=== PATIENT | female | born 1950 | race Caucasian/White ===

== ENCOUNTER 2020-07-12 16:00 | Inpatient (IN) | payer MEDICARE, OTHER ==
[~2020-07-12] VITALS: Ht 165.1 cm; Wt 64.6 kg
[~2020-07-12 16:00] MED LIST: ALBU90OI INH; CIPR500 PO; PHENA200 PO; RXPHEN200 PO; SULTRIDS PO; VARE1
[2020-07-12 17:10] LABS: BASOPHILS ABSOLUTE AUTO 0.03 K/mm3 (0.00-0.23); BASOPHILS PERCENT AUTO 0 % (0-2); EOSINOPHILS ABSOLUTE AUTO 0.01 K/mm3 (0.00-0.68); EOSINOPHILS PERCENT AUTO 0 % (0-6); Hematocrit 32.8 % (33.0-51.0); Hemoglobin 11.4 g/dL (11.5-16.0); IMMATURE GRAN ABSOLUTE AUTO 0.04 K/mm3 (0.00-0.10); IMMATURE GRAN PERCENT AUTO 1 % (0-1); LYMPHOCYTES ABSOLUTE AUTO 1.33 K/mm3 (0.84-5.20); LYMPHOCYTES PERCENT AUTO 18 % (21-46); MONOCYTES ABSOLUTE AUTO 0.96 K/mm3 (0.16-1.47); MONOCYTES PERCENT AUTO 13 % (4-13); Mean Corpuscular HGB 41.5 pg (26.0-34.0); Mean Corpuscular HGB Conc 34.8 g/dL (31.5-36.5); Mean Corpuscular Volume 119 fL (80-100); Mean Platelet Volume 11.1 fL (9.1-12.4); NEUTROPHILS ABSOLUTE AUTO 5.18 K/mm3 (1.96-9.15); NEUTROPHILS PERCENT AUTO 69 % (41-73); Platelet Count 102 K/mm3 (150-400); RDW Coefficient Variation 14.7 % (11.7-14.2); RDW Standard Deviation 65.3 fL (35.1-46.3); Red Blood Cell Count 2.75 M/mm3 (3.80-5.20); White Blood Cell Count 7.55 K/mm3 (4.00-11.30)
[2020-07-12 18:25] LABS: Alanine Aminotransfer (ALT/SGP 26 U/L (12-78); Albumin, Blood 2.3 g/dL (3.4-5.0); Albumin/Globulin Ratio 0.5 (0.8-1.8); Alk Phos 92 U/L (50-136); Anion Gap 10 mmol/L (6-16); Aspartate Aminotrans (AST/SGOT 71 U/L (12-37); Bilirubin, Total 11.7 mg/dL (0.1-1.0); Blood Urea Nitrogen 11 mg/dL (8-24); Bun/Creatinine Ratio 17.3 (12.0-20.0); CO2, Blood 35 mmol/L (21-32); Calcium, Blood 8.6 mg/dL (8.5-10.1); Chloride, Blood 91 mmol/L (98-108); Creatinine, Blood 0.64 mg/dL (0.40-1.00); Globulin, Blood 4.9 g/dL (2.2-4.0); Glomerular Filtration Rate >60 (60-); Glucose, Blood 137 mg/dL (70-99); Potassium, Blood 2.2 mmol/L (3.5-5.5); Sodium, Blood 136 mmol/L (136-145); Total Protein, Blood 7.2 g/dL (6.4-8.2)
[2020-07-12 19:56] LABS: International Normalized Ratio 1.55; Prothrombin Time Results 16.2 Sec (9.7-11.5)
[2020-07-12 21:47] LABS: Phosphorus, Blood 2.8 mg/dL (2.5-4.9)
[2020-07-13 00:08] LABS: Source, Urine Clean Catch
[2020-07-13 00:13] LABS: Appearance, Urine Clear (Clear); Bilirubin, Urine 3+ (Neg); Blood, Urine 1+ (Neg); Color, Urine Amber (P-Yellow); Glucose Qualitative, Urine Neg (Neg); Ketones, Urine 1+ (Neg); Leukocyte Esterase, Urine 1+ (Neg); Nitrite, Urine Pos (Neg); Protein, Urine 2+ (Neg); Urobilinogen, Urine 4+ (Normal)
[2020-07-13 00:18] LABS: Red Blood Cells, Urine 0-2 /hpf (0-2)
[2020-07-13 00:19] LABS: Bacteria Mod /hpf; Squamous Epithelial Cells Not Seen /hpf (Few)
[2020-07-13 00:20] LABS: Hematocrit 24.1 % (33.0-51.0); Hemoglobin 8.3 g/dL (11.5-16.0)
[2020-07-13 05:13] LABS: BASOPHILS ABSOLUTE AUTO 0.01 K/mm3 (0.00-0.23); BASOPHILS PERCENT AUTO 0 % (0-2); EOSINOPHILS ABSOLUTE AUTO 0.02 K/mm3 (0.00-0.68); EOSINOPHILS PERCENT AUTO 0 % (0-6); Hematocrit 24.9 % (33.0-51.0); Hemoglobin 8.5 g/dL (11.5-16.0); IMMATURE GRAN ABSOLUTE AUTO 0.01 K/mm3 (0.00-0.10); IMMATURE GRAN PERCENT AUTO 0 % (0-1); LYMPHOCYTES PERCENT AUTO 23 % (21-46); MONOCYTES ABSOLUTE AUTO 0.81 K/mm3 (0.16-1.47); MONOCYTES PERCENT AUTO 17 % (4-13); Mean Corpuscular HGB 42.1 pg (26.0-34.0); Mean Corpuscular HGB Conc 34.1 g/dL (31.5-36.5); Mean Corpuscular Volume 123 fL (80-100); NEUTROPHILS ABSOLUTE AUTO 2.81 K/mm3 (1.96-9.15); NEUTROPHILS PERCENT AUTO 59 % (41-73); Platelet Count 66 K/mm3 (150-400); RDW Coefficient Variation 15.1 % (11.7-14.2); RDW Standard Deviation 67.8 fL (35.1-46.3); Red Blood Cell Count 2.02 M/mm3 (3.80-5.20); White Blood Cell Count 4.76 K/mm3 (4.00-11.30)
[2020-07-13 05:29] LABS: Anion Gap 5 mmol/L (6-16); Blood Urea Nitrogen 10 mg/dL (8-24); Bun/Creatinine Ratio 15.8 (12.0-20.0); CO2, Blood 32 mmol/L (21-32); Calcium, Blood 7.1 mg/dL (8.5-10.1); Chloride, Blood 103 mmol/L (98-108); Creatinine, Blood 0.63 mg/dL (0.40-1.00); Glomerular Filtration Rate >60 (60-); Glucose, Blood 151 mg/dL (70-99); Magnesium, Blood 2.2 mg/dL (1.6-2.4); Potassium, Blood 3.4 mmol/L (3.5-5.5); Sodium, Blood 140 mmol/L (136-145)
--- NOTE | 2020-07-13 06:00 | NUR ---
PT ADMITTED TO ICU-2 FROM ER AT 0140. ADMIT ASSESS & HX COMPLETE. PT CONT ALERT, CO FEELING TIRED. PT STATES HASNT FELT WELL FOR 2 MONTHS, AND HAS LOST APPROX 20# OVER 6 MONTHS. PT ALSO STATES HER ABD HAS FELT "INGRAM" OVER LAST 1.5 WEEKS, BUT W DECREASED APPETITE. BP HAS IMPROVED FROM 60'S TO 80'S AND HAS REC'D APPROX 3500ML OF FLUID THIS SHIFT. NO SIGN OF BLEEDING. NO VOID SINCE ER. CONT ON PROTONIX & SANDOSTATIN. HAS ALSO REC'D KCL REPLACEMENT. CALL LIGHT IN REACH.
--- NOTE | 2020-07-13 08:52 | NUR ---
CARE ASSUMED CARE AND REPORT ASSUMED FROM SHIVAM BHAKTA. PT SITTING UP IN BED. FLAT AFFECT. OVERALL JAUNDICED IN COLOR. DENIES PAIN AT THIS TIME. ABDOMEN IS DISTENDED, BUT SOFT; MILDLY TENDER. LUNG SOUNDS CLEAR THROUGHOUT. SPO2 87-93 ON 4-6L NC. AFEBRILE. SBP LOW IN 80S; MD RESIDENT AWARE. LABS DISCUSSED WITH MD RESIDENT. NSR, HR 70-80S. NS WITH 20 MEQ INFUSING AT 75 ML/HR. PROTONIX AND OCTREOTIDE INFUSING. WILL CONTINUE TO MONITOR.
[2020-07-13 10:21] LABS: Hematocrit 26.6 % (33.0-51.0); Hemoglobin 8.9 g/dL (11.5-16.0)
--- NOTE | 2020-07-13 13:29 | NUR ---
REASSESSMENT PT REMAINS IN ROOM, NO ACUTE DISTRESS. NO SIGNS OF ACTIVE BLEEDING. NO NAUSEA. PT REQUESTED TO GET OUT OF BED SHE IS RESTLESS. SHE WAS ABLE TO STAND AND AMBULATE INTO CHAIR, WHERE SHE IS CURRENTLY SITTING UPRIGHT WATCHING TV. PROTONIX AND OCTREOTIDE REMAINS INFUSING. MIV NS INFUSING AT 150 ML/HR PER ORDER. PT REMAINS NPO BUT IS TOLERATING A FEW ICE CHIPS. WILL CONTINUE TO MONITOR.
--- NOTE | 2020-07-13 17:27 | NUR ---
Initial spiritual care note: Per admit trigger, I was tasked to offer ACP information to Ashley. She is interested in completing and Advanced Directive naming her dtr as MPOA. We went over this document. She will inform RN when dtr arrives, and I will help complete. Until then, I will remain available.
--- NOTE | 2020-07-13 17:55 | NUR ---
SHIFT SUMMARY OCTREOTIDE AND PROTONIX GTT INFUSED ENTIRE SHIFT. PT UP TO BEDSIDE COMMODE AND OUT OF BED WITH JUST STANDBY ASSIST. NO NAUSEA; NO VOMITING. NO SIGNS OF ACTIVE BLEEDING DURING SHIFT. DID SIT UP IN RECLINER CHAIR FOR FEW HOURS TODAY. DAUGHTER BEDSIDE OFF/ON DURING SHIFT AND UPDATED EACH TIME. BP SOFT ENTIRE DAY, 80-90S/40-50S; MD AWARE. PT NOW HAVING CLEAR LIQUIDS; WILL BE NPO AT MIDNIGHT. HAS REMAINED IN NSR, HR 70-80S. WILL GIVE BEDSIDE, HANDOFF REPORT TO NOC RN.
--- NOTE | 2020-07-13 18:36 | NUR ---
Advanced Directive completed, signed, notarized, and copies made. One copy place in chart. The rest home with dtr.
--- NOTE | 2020-07-13 22:35 | NUR ---
ASSUMED CARE: PT A&O. MILDLY FEBRILE IN THE 99.0. IN SR, SBP 80-90S, HR 70-80S. ON 4LNC. SPO2 >90%. PT CURRENTLY DOES NOT COMPLAIN OF N/V/D. NO EVIDENCE OR S/S OF BLEEDING. ABD IS MOD DISTENDED WITH BT X 4. PT IS A STANDBY ASSIST TO COMMODE D/T DIFFICULTY MANAGING IV LINES. 3 PIVS. LAC, LFA, RAC. DR LANZA WAS IN TO SEE PT. PLAN IS TO SCOPE IN THE AFTERNOON. PT WILL BE NPO AFTER MIDNIGHT FOR PROCEDURE.
--- NOTE | 2020-07-14 06:21 | NUR ---
SHIFT SUMMARY: NO ACUTE CHANGES OVERNIGHT. PT SLEPT MAJORITY OF NIGHT. VSS, SBP SOFT AT TIMES DEPENDING ON PT POSITION. SOME URINE OUTPUT. ONE BM. NO S/S OF BLEEDING. WILL PASS REPORT TO ONCOMING SHIFT
--- NOTE | 2020-07-14 07:46 | NUR ---
PT A&OX4. DENIES PAIN OR NAUSEA. NO ACTIVE BLEEDING. PT AFFECT FLAT. PT STATES THAT HER SPOUSE ONE YEAR AGO TODAY IN THIS ICU. ALLOWED PT TO VERBALIZE HER FEELINGS IN THAT REGARD. LUNGS WITH SCATTERED EXP WZ. NO NOTED SOB OR COUGH. PT IS NPO FOR EGD WITH MAC LATER TODAY. PT REPORTED THAT SHE WAS "GETTING TIRED OF THIS BED." ASSISTED PT UP TO RECLINER WITH STANDBY ASSIST WITHOUT DIFFICULTY.
[2020-07-14 08:23] LABS: Hematocrit 27.5 % (33.0-51.0); Hemoglobin 9.2 g/dL (11.5-16.0)
[2020-07-14 08:42] LABS: Anion Gap 2 mmol/L (6-16); Blood Urea Nitrogen 8 mg/dL (8-24); Bun/Creatinine Ratio 13.9 (12.0-20.0); CO2, Blood 30 mmol/L (21-32); Chloride, Blood 111 mmol/L (98-108); Creatinine, Blood 0.58 mg/dL (0.40-1.00); Glomerular Filtration Rate >60 (60-); Glucose, Blood 118 mg/dL (70-99); Sodium, Blood 143 mmol/L (136-145)
--- NOTE | 2020-07-14 10:24 | NUR ---
History, Chart, Medications and Allergies reviewed before start of procedure. Patient confirms NPO status and agrees with scheduled surgery.
--- NOTE | 2020-07-14 10:41 | NUR ---
07/14/20 1041 Luis Kearns Bite Block Placed. 3-LEAD EKG REVIEWED WITH PHYSICIAN PRIOR TO START OF PROCEDURE. CASE DONE IN ICU [address] GOMES. SEE ANNESTHESIA RECORD
--- NOTE | 2020-07-14 10:52 | NUR ---
[id number] EGD DONE. NO VARICES. APC UTILIZED FOR GAVE. ECG DONE WITH MAC-PT TOLERATED WELL. SEE FLOWSHEET FOR FREQUENT VS.
--- NOTE | 2020-07-14 12:00 | NUR ---
CIWA REMAINS 0. NO NAUSEA, VOMITING, OR ACTIVE GIB. PT SIPPING ON ENSURE WITHOUT DIFFICULTY. VS WDL. ULTRASOUND GUIDED PARACENTESIS FOR BOTH DIAGNOSTIC AND THERAPEUTIC PURPOSE IS ORDERED AND THE [employer] HAS BEEN NOTIFIED. PT TO BE STARTED ON PRILOSEC PO-SANDOSTATIN AND PROTONIX DRIPS DISCONTINUED. REPORT PHONED TO YONY HAWK AND PT TRANSFERED TO ROOM 339 VIA WHEELCHAIR.
--- NOTE | 2020-07-14 12:05 | NUR ---
PT ARRIVED TO ROOM 339 FROM ICU 2 VIA W/C. ABLE TO STAND AND TRANSFER TO CHAIR. PT IS A SBA. ORIENTED TO ROOM AND CALL SYSTEM. TRANSPORT ARRIVED WITH A W/C. PT TO RECEIVED AN ULTRASOUND GUIDED PARACENTISIS AT THIS TIME.
[2020-07-14 14:02] LABS: Automated BF RBC Count 0.002 M/mm3 (0-0); Automated BF WBC Count 0.186 K/mm3 (0-999); Body Fluid WBC Count 186 /mm3 (0-999)
[2020-07-14 14:12] LABS: Albumin, Body Fluid 0.5 g/dL
[2020-07-14 14:25] LABS: Protein, Body Fluid 1.1 g/dL
[2020-07-14 14:39] LABS: Total Cell Count, Body Fluid 100
[2020-07-14 14:40] LABS: Appearance, Body Fluid Clear (Clear)
--- NOTE | 2020-07-14 17:58 | NUR ---
PT HAD PARACENTISIS THIS AFTERNOON. PER REPORT 24OO ML REMOVED AND FLUID SENT TO LAB. PT TOLERATED PROCEDURE WITHOUT DIFFICULTY. PT TRIALED ROOM AIR, SATS DROPPED INTO THE 80'S, 2LNC PLACED, SAT AT 93%. NO ACUTE CHANGES NOTED, WILL CONTINUE TO MONITOR AND REPORT TO ONCOMING RN,
--- NOTE | 2020-07-15 04:04 | NUR ---
SHIFT SUMMARY PATIENT HAD NO ACUTE CHANGES OBSERVED. AXOX 3 AND INDEPENDENT IN THE ROOM. REPORTED PAIN FROM PARACENTISIS SITE AND IV DILAUDID 0.5 MG GIVEN PER EMAR WITH GOOD EFFECT. PIV REMAINS INTACT. ON 2L O2 NC. TEMP OF 100.4 AT START OF SHIFT. TYLENOL 650 MG GIVEN PER EMAR. ROOM TEMP HEAT LOWERED AND BLANKETS PULLED BACK. RECHECKED AT 97.5. DENIES SOB AND N/V. COOPERATIVE WITH CARE. CALL LIGHT IN REACH. BED IN LOWEST POSITION. WILL CONTINUE TO MONITPR UNTIL DAY SHIFT NURSE ASSUMES CARE.
[2020-07-15 05:33] LABS: BASOPHILS ABSOLUTE AUTO 0.03 K/mm3 (0.00-0.23); BASOPHILS PERCENT AUTO 1 % (0-2); EOSINOPHILS ABSOLUTE AUTO 0.11 K/mm3 (0.00-0.68); EOSINOPHILS PERCENT AUTO 2 % (0-6); Hematocrit 26.9 % (33.0-51.0); Hemoglobin 8.9 g/dL (11.5-16.0); IMMATURE GRAN ABSOLUTE AUTO 0.03 K/mm3 (0.00-0.10); IMMATURE GRAN PERCENT AUTO 1 % (0-1); LYMPHOCYTES ABSOLUTE AUTO 1.51 K/mm3 (0.84-5.20); LYMPHOCYTES PERCENT AUTO 30 % (21-46); MONOCYTES ABSOLUTE AUTO 0.64 K/mm3 (0.16-1.47); MONOCYTES PERCENT AUTO 13 % (4-13); Mean Corpuscular HGB 42.4 pg (26.0-34.0); Mean Corpuscular HGB Conc 33.1 g/dL (31.5-36.5); Mean Platelet Volume 10.9 fL (9.1-12.4); NEUTROPHILS ABSOLUTE AUTO 2.78 K/mm3 (1.96-9.15); NEUTROPHILS PERCENT AUTO 55 % (41-73); Platelet Count 63 K/mm3 (150-400); RDW Coefficient Variation 15.5 % (11.7-14.2); RDW Standard Deviation 73.2 fL (35.1-46.3)
[2020-07-15 05:37] LABS: Mean Corpuscular Volume 128 fL (80-100)
[2020-07-15 05:45] LABS: International Normalized Ratio 1.86; Prothrombin Time Results 19.2 Sec (9.7-11.5)
[2020-07-15 05:57] LABS: Alanine Aminotransfer (ALT/SGP 16 U/L (12-78); Albumin, Blood 1.7 g/dL (3.4-5.0); Albumin/Globulin Ratio 0.5 (0.8-1.8); Alk Phos 57 U/L (50-136); Anion Gap 3 mmol/L (6-16); Aspartate Aminotrans (AST/SGOT 41 U/L (12-37); Bilirubin, Total 6.5 mg/dL (0.1-1.0); Blood Urea Nitrogen 7 mg/dL (8-24); Bun/Creatinine Ratio 10.9 (12.0-20.0); CO2, Blood 30 mmol/L (21-32); Calcium, Blood 7.1 mg/dL (8.5-10.1); Chloride, Blood 110 mmol/L (98-108); Creatinine, Blood 0.64 mg/dL (0.40-1.00); Globulin, Blood 3.2 g/dL (2.2-4.0); Glomerular Filtration Rate >60 (60-); Glucose, Blood 124 mg/dL (70-99); Potassium, Blood 3.7 mmol/L (3.5-5.5); Sodium, Blood 143 mmol/L (136-145); Total Protein, Blood 4.9 g/dL (6.4-8.2)
[2020-07-15 06:09] LABS: Alpha Feto Protein, Tumor Mkr 4.1 ng/mL (0.0-8.0); Percent Saturation 62.9 % (15.0-50.0)
--- NOTE | 2020-07-15 08:00 | NUR ---
DISCUSSED PT'S BP WITH DR ROBLEDO THIS AM. PT RESTING QUIETLY.
--- NOTE | 2020-07-15 08:47 | NUR ---
DR PATEL HERE TO SEE PT. PT ABLE TO WALK WITH STEADY GAIT.
[2020-07-15] MEDS ORDERED: GABA600 PO (09:12)
[2020-07-15] MEDS ORDERED: LEVO750 PO (09:12)
[2020-07-15] MEDS ORDERED: OMEP20ER PO (09:12)
--- NOTE | 2020-07-15 11:51 | NUR ---
DR NOTIFIED OF PT HAVING EMESIS X2 AFTER HAVING SHOWER. VSS. PT CONT TO REPORT "JUST FEEL FLOATY".
--- NOTE | 2020-07-15 13:32 | NUR ---
PT REPORTS FEELING BETTER NOW. DOES NOT FEEL LIKE SHE DID EARLIER. PT REPORTS HEAD FEELING BETTER, DOESN'T FEEL RUMMY
[2020-07-15] MEDS ORDERED: FURO20 PO (15:03)
--- NOTE | 2020-07-15 15:55 | NUR ---
DR ROBLEDO CALLED AND TALKED TO PT HERSELF ON PHONE. PT BEEN CLEARED BY THERAPY TO GO HOME. PT BEEN SEEN BY EXTRUSION ENGINEER.
--- NOTE | 2020-07-15 16:00 | NUR ---
DISCHARGE: PT EATING AND DRINKING WITHOUT DIFFICULTY. DENIES NAUSEA. PT REPORTS HEAD FEELING MUCH BETTER, NOT WOOZY OR ANYTHING LIKE THAT. PT/FAMILY REPORTS UNDERSTANDING OF DISCHARGE INSTRUCTIONS INCLUDING NEW MEDICATIONS. PT SENT WITH PAPERWORK AND BELONGINGS. PT IV'S OUT WNL, PT HAS NO OTHER IV'S IN PLACE. PT FAMILY HERE AT TIME OF DISCHARGE PAPERWORK AND IS GIVING PT RIDE HOME. PT CONT TO HAVE STEADY GAIT, UP IND.
[2020-07-16 15:11] LABS: ANA DIRECT Negative (Negative)
== END 2020-07-15 16:10 | disposition home or self-care (01) | DRG 378 ==
LOC: ER 16:00 → ICUE 16:01 → ICUW 16:01 → ICUE 07-13 01:37 → MEDS 07-13 07:59 → ICUE 07-13 08:00 → MEDS 07-14 12:05 → ICUE 07-14 12:06 → MEDS 07-15 16:10
PROVIDERS: Emergency Medicine; Family Medicine; Internal Medicine Gastroenterology; Nurse Practitioner Acute Care; Physician Assistant; ADMIT Internal Medicine
PROC: 0W3P8ZZ Control Bleeding in Gastrointestinal Tract, Via Natural or Artificial Opening Endoscopic (ICD-10-PCS; 2020-07-14)
PROC: 0W9G30Z Drainage of Peritoneal Cavity with Drainage Device, Percutaneous Approach (ICD-10-PCS; principal; 2020-07-14 10:15)
DX: K31.811 Angiodysplasia of stomach and duodenum with bleeding (principal); K86.0 Alcohol-induced chronic pancreatitis; K76.6 Portal hypertension; E86.0 Dehydration; F17.210 Nicotine dependence, cigarettes, uncomplicated; I95.9 Hypotension, unspecified; Z20.828 Contact with and (suspected) exposure to other viral communicable diseases; E87.6 Hypokalemia; F10.10 Alcohol abuse, uncomplicated; E83.42 Hypomagnesemia; K70.31 Alcoholic cirrhosis of liver with ascites; D64.9 Anemia, unspecified; Y90.0 Blood alcohol level of less than 20 mg/100 ml
CPT/HCPCS: 36415; 49083; 51701; 74160; 80048; 80053; 81001; 82042; 82105; 82272; 82607; 82728; 82746; 83516; 83540; 83550; 83690; 83735; 84100; 84157; 85014; 85018; 85025; 85610; 85730; 86038; 86850; 86900; 86901; 87070; 87086; 87205; 88108; 89051; 93005; 93010; 96361-59; 96365-59; 96366; 96366-59; 96367; 96368; 96375; 96375-59; 96376; 96376-59; 97161; 99285-25; A9270; C9113; G0378; G0480; J0696; J1170; J2354; J2370; J2405; J2550; J2704; J3411; J3475; J3480; J7030; J7042; J7050; J7120; P9045; Q9967; U0004

== ENCOUNTER 2020-07-22 10:33 | Emergency (ER) | payer MEDICARE, OTHER ==
[~2020-07-22] VITALS: Ht 165.1 cm; Wt 64.4 kg
[~2020-07-22 10:33] MED LIST changes: +FURO20 PO; +GABA600 PO; +LEVO750 PO; +OMEP20ER PO
[2020-07-22 11:20] LABS: BASOPHILS ABSOLUTE AUTO 0.02 K/mm3 (0.00-0.23); BASOPHILS PERCENT AUTO 0 % (0-2); EOSINOPHILS ABSOLUTE AUTO 0.01 K/mm3 (0.00-0.68); EOSINOPHILS PERCENT AUTO 0 % (0-6); Hematocrit 31.8 % (33.0-51.0); Hemoglobin 10.8 g/dL (11.5-16.0); IMMATURE GRAN ABSOLUTE AUTO 0.03 K/mm3 (0.00-0.10); IMMATURE GRAN PERCENT AUTO 1 % (0-1); LYMPHOCYTES ABSOLUTE AUTO 0.86 K/mm3 (0.84-5.20); LYMPHOCYTES PERCENT AUTO 15 % (21-46); MONOCYTES ABSOLUTE AUTO 0.68 K/mm3 (0.16-1.47); MONOCYTES PERCENT AUTO 12 % (4-13); Mean Corpuscular HGB 41.5 pg (26.0-34.0); Mean Corpuscular Volume 122 fL (80-100); NEUTROPHILS ABSOLUTE AUTO 4.22 K/mm3 (1.96-9.15); NEUTROPHILS PERCENT AUTO 73 % (41-73); Platelet Count 67 K/mm3 (150-400); RDW Coefficient Variation 14.6 % (11.7-14.2); RDW Standard Deviation 67.2 fL (35.1-46.3); White Blood Cell Count 5.82 K/mm3 (4.00-11.30)
[2020-07-22 11:38] LABS: Alanine Aminotransfer (ALT/SGP 25 U/L (12-78); Albumin/Globulin Ratio 0.5 (0.8-1.8); Alk Phos 73 U/L (50-136); Anion Gap 7 mmol/L (6-16); Aspartate Aminotrans (AST/SGOT 82 U/L (12-37); Blood Urea Nitrogen 17 mg/dL (8-24); Bun/Creatinine Ratio 19.7 (12.0-20.0); CO2, Blood 29 mmol/L (21-32); Calcium, Blood 8.2 mg/dL (8.5-10.1); Chloride, Blood 104 mmol/L (98-108); Creatinine, Blood 0.86 mg/dL (0.40-1.00); Globulin, Blood 4.2 g/dL (2.2-4.0); Glomerular Filtration Rate >60 (60-); Glucose, Blood 153 mg/dL (70-99); Magnesium, Blood 1.7 mg/dL (1.6-2.4); Potassium, Blood 3.1 mmol/L (3.5-5.5); Sodium, Blood 140 mmol/L (136-145); Total Protein, Blood 6.2 g/dL (6.4-8.2)
[2020-07-22 11:44] LABS: International Normalized Ratio 1.44; Prothrombin Time Results 15.1 Sec (9.7-11.5)
[2020-07-22] MEDS ORDERED: POTCHL10ER PO (12:27)
[2020-07-22] MEDS ORDERED: ONDA4ODT MM (12:27)
== END 2020-07-22 13:10 | disposition home or self-care (01) ==
LOC: ER 10:33
PROVIDERS: Emergency Medicine
DX: K70.30 Alcoholic cirrhosis of liver without ascites (principal); E87.6 Hypokalemia; F17.200 Nicotine dependence, unspecified, uncomplicated; Z79.899 Other long term (current) drug therapy
CPT/HCPCS: 36415; 80053; 83690; 83735; 85025; 85610; 85730; 93005; 93010; 96361; 96374; 99284-25; J2405; J7030

== ENCOUNTER 2020-07-22 13:46 | Day surgery (SDC) | payer MEDICARE, OTHER ==
[~2020-07-22 13:46] MED LIST changes: +ONDA4ODT MM; +POTCHL10ER PO
== END 2020-07-22 22:52 | disposition home or self-care (01) ==
LOC: US 13:46
DX: K74.60 Unspecified cirrhosis of liver (principal); R18.8 Other ascites; Z79.899 Other long term (current) drug therapy; Z20.828 Contact with and (suspected) exposure to other viral communicable diseases
CPT/HCPCS: 49083

== ENCOUNTER 2020-08-20 21:04 | Inpatient (IN) | payer MEDICARE, OTHER ==
[~2020-08-20] VITALS: Ht 167.6 cm; Wt 84.0 kg
[2020-08-20 21:34] LABS: BASOPHILS ABSOLUTE AUTO 0.02 K/mm3 (0.00-0.23); BASOPHILS PERCENT AUTO 0 % (0-2); EOSINOPHILS ABSOLUTE AUTO 0.02 K/mm3 (0.00-0.68); EOSINOPHILS PERCENT AUTO 0 % (0-6); Hematocrit 32.2 % (33.0-51.0); Hemoglobin 10.2 g/dL (11.5-16.0); IMMATURE GRAN ABSOLUTE AUTO 0.08 K/mm3 (0.00-0.10); IMMATURE GRAN PERCENT AUTO 1 % (0-1); LYMPHOCYTES ABSOLUTE AUTO 1.08 K/mm3 (0.84-5.20); LYMPHOCYTES PERCENT AUTO 12 % (21-46); MONOCYTES ABSOLUTE AUTO 1.04 K/mm3 (0.16-1.47); MONOCYTES PERCENT AUTO 12 % (4-13); Mean Corpuscular HGB 36.4 pg (26.0-34.0); Mean Corpuscular HGB Conc 31.7 g/dL (31.5-36.5); Mean Corpuscular Volume 115 fL (80-100); Mean Platelet Volume 10.5 fL (9.1-12.4); NEUTROPHILS ABSOLUTE AUTO 6.51 K/mm3 (1.96-9.15); NEUTROPHILS PERCENT AUTO 75 % (41-73); Platelet Count 108 K/mm3 (150-400); RDW Coefficient Variation 13.9 % (11.7-14.2); RDW Standard Deviation 59.3 fL (35.1-46.3); White Blood Cell Count 8.75 K/mm3 (4.00-11.30)
[2020-08-20 21:49] LABS: International Normalized Ratio 1.49; Prothrombin Time Results 15.6 Sec (9.7-11.5)
[2020-08-20 21:56] LABS: Ethanol (Alcohol), Blood, Med <3 mg/dL
[2020-08-20 21:57] LABS: Alanine Aminotransfer (ALT/SGP 14 U/L (12-78); Albumin/Globulin Ratio 0.5 (0.8-1.8); Alk Phos 83 U/L (50-136); Anion Gap 17 mmol/L (6-16); Bilirubin, Total 9.1 mg/dL (0.1-1.0); Blood Urea Nitrogen 17 mg/dL (8-24); Bun/Creatinine Ratio 17.4 (12.0-20.0); CO2, Blood 24 mmol/L (21-32); Calcium, Blood 8.3 mg/dL (8.5-10.1); Chloride, Blood 100 mmol/L (98-108); Creatinine, Blood 0.98 mg/dL (0.40-1.00); Globulin, Blood 4.4 g/dL (2.2-4.0); Glomerular Filtration Rate 60 (60-); Glucose, Blood 132 mg/dL (70-99); Potassium, Blood 3.3 mmol/L (3.5-5.5); Sodium, Blood 141 mmol/L (136-145); Total Protein, Blood 6.4 g/dL (6.4-8.2)
[2020-08-20 22:41] LABS: Aspartate Aminotrans (AST/SGOT 37 U/L (12-37)
[2020-08-20 22:42] LABS: Acetaminophen, Random <2.0 ug/mL (10.0-30.0); Salicylate <1.7 mg/dL (2.8-20.0)
[2020-08-20] MEDS ORDERED: SPIR25 PO (23:14)
[2020-08-21 05:01] LABS: BASOPHILS ABSOLUTE AUTO 0.02 K/mm3 (0.00-0.23); BASOPHILS PERCENT AUTO 0 % (0-2); EOSINOPHILS ABSOLUTE AUTO 0.01 K/mm3 (0.00-0.68); EOSINOPHILS PERCENT AUTO 0 % (0-6); Hematocrit 22.8 % (33.0-51.0); Hemoglobin 7.4 g/dL (11.5-16.0); IMMATURE GRAN ABSOLUTE AUTO 0.04 K/mm3 (0.00-0.10); IMMATURE GRAN PERCENT AUTO 1 % (0-1); LYMPHOCYTES ABSOLUTE AUTO 1.31 K/mm3 (0.84-5.20); LYMPHOCYTES PERCENT AUTO 18 % (21-46); MONOCYTES ABSOLUTE AUTO 0.62 K/mm3 (0.16-1.47); MONOCYTES PERCENT AUTO 9 % (4-13); Mean Corpuscular HGB 36.3 pg (26.0-34.0); Mean Corpuscular HGB Conc 32.5 g/dL (31.5-36.5); Mean Corpuscular Volume 112 fL (80-100); Mean Platelet Volume 10.4 fL (9.1-12.4); NEUTROPHILS ABSOLUTE AUTO 5.29 K/mm3 (1.96-9.15); NEUTROPHILS PERCENT AUTO 73 % (41-73); Platelet Count 72 K/mm3 (150-400); RDW Coefficient Variation 13.7 % (11.7-14.2); RDW Standard Deviation 56.1 fL (35.1-46.3); Red Blood Cell Count 2.04 M/mm3 (3.80-5.20); White Blood Cell Count 7.29 K/mm3 (4.00-11.30)
[2020-08-21 05:24] LABS: Alanine Aminotransfer (ALT/SGP 12 U/L (12-78); Albumin, Blood 1.8 g/dL (3.4-5.0); Albumin/Globulin Ratio 0.5 (0.8-1.8); Alk Phos 59 U/L (50-136); Anion Gap 4 mmol/L (6-16); Aspartate Aminotrans (AST/SGOT 28 U/L (12-37); Bilirubin, Total 7.5 mg/dL (0.1-1.0); Blood Urea Nitrogen 17 mg/dL (8-24); Bun/Creatinine Ratio 18.4 (12.0-20.0); CO2, Blood 34 mmol/L (21-32); Calcium, Blood 7.8 mg/dL (8.5-10.1); Chloride, Blood 103 mmol/L (98-108); Creatinine, Blood 0.92 mg/dL (0.40-1.00); Globulin, Blood 3.3 g/dL (2.2-4.0); Glomerular Filtration Rate >60 (60-); Glucose, Blood 122 mg/dL (70-99); Potassium, Blood 3.1 mmol/L (3.5-5.5); Sodium, Blood 141 mmol/L (136-145); Total Protein, Blood 5.1 g/dL (6.4-8.2)
--- NOTE | 2020-08-21 06:33 | NUR ---
SHIFT SUMMARY PT WAS A NEW ADMIT DURING THE NIGHT, ARRIVING ON THE FLOOR AT 0116. SHE WAS ADMITTED FOR HEPATIC ENCEPHALOPATHY. PT IS A&O X 0, RESPONDS TO VERBAL PROMPTING, AND ANSWERS ALL QUESTIONS OR INSTRUCTIONS WITH "OKAY", DOES NOT FOLLOW INSTRUCTIONS. NO S/S OF PAIN, NAUSEA OR SOB. JAUNDICE NOTED TO SKIN AND EYES. PT RECEIVING NS @ 75 ML/HR, AND 40 MEQ K+. VITAL SIGNS STABLE. NO ACUTE CHANGES IN PT CONDITION NOTED SINCE ADMISSION. WILL CONTINUE TO MONITOR AND TREAT PER EMAR UNTIL HAND OFF TO DAY SHIFT RN.
[2020-08-21 09:10] LABS: Hematocrit 28.3 % (33.0-51.0); Hemoglobin 9.3 g/dL (11.5-16.0)
[2020-08-21] MEDS ORDERED: CONSTULOSE10 GM/15 M PO (09:55)
[2020-08-21 12:13] LABS: Hematocrit 24.5 % (33.0-51.0)
--- NOTE | 2020-08-21 16:31 | NUR ---
SHE IS OX3 NOW BUT CANNOT REMEMBER ANYTHING ABOUT COMING TO THE HOSPITAL. IVF'S CONTINUE. BP VARIES. LOWEST SBP THIS SHIFT WAS 98. OTHERS LOW 100'S. NO C/O DIZZINESS. NO C/O SOB OR PAIN. SHE SAYS SHE IS EMBARASSED. I TOLD HER I UNDERSTOOD BUT IT ISN'T HER FAULT. SHE SAID YES IT IS. I TALKED WITH HER ABOUT HER LACTULOSE AT HOME, HOW IMPORTANT IT IS FOR HER TO TAKE ENOUGH TO HAVE 3 TO 4 BM'S A DAY EVERY DAY. SHE SAYS SHE DOESN'T HAVE REGULAR BM'S. I TOLD HER SHE NEEDS THE BM'S TO RID HER BODY OF TOXINS SINCE HER LIVER IS UNABLE TO. HER DAUGHTER CALLED TO ASK IF HER MOM WOULD KNOW SHE WAS HERE IF SHE CAME TO VISIT. I SAID YES. SHE PLANS TO COME IN. MALIK HAS BEEN STOOLING OFF AND ON ALL DAY. NO BLOOD SEEN. HER H&H HAS VARIED. HGB 7.4 TO 9.3 TO 8.0. HER LAST SERIAL H&H WILL BE AT 1800. SHE IS THIRSTY BUT MD SAYS TO KEEP HER NPO TODAY. TOOTHETTES AT BEDSIDE. EDEMA IS 2 TO 3+ IN HER LOWER LEGS. HER ASCITES IS SEVERE. IT HAS BEEN HARD TO TELL IF SHE HAS VOIDED ANY TODAY AND SHE ISN'T SURE. I ASKED HER TO PAY ATTENTION TO THAT. BLADDER SCANS ARE USUALLY NOT ACCURATE WHEN THER IS SIGNIFICANT ASCITES PRESENT. TELE IS NSR. SKIN IS INTACT. K-RIDER FINISHED EARLY THIS MORNING. HER EYELIDS ARE JAUNDICED AND EDEMATOUS. BED ALARM ON AND 3 RAILS UP.
[2020-08-21 18:22] LABS: Hematocrit 25.4 % (33.0-51.0); Hemoglobin 8.2 g/dL (11.5-16.0)
--- NOTE | 2020-08-22 04:08 | NUR ---
RESIDENTIAL CARPET INSTALLER SUMMARY A/O 2-3, WITH SOME CONFUSION NOTED. HAS APPEARED TO SLEEP T/O NIGHT. 4 LOOSE BM'S DURING THIS SHIFT, LACTULOSE HELD. DENIES PAIN OR SOB. CURRENTLY ON 2L WITH SATS GREATER THAN 92. SEVERE ASCITES NOTED, WELL JAUNDICE IN THE PERIORBITAL AREA. PT SITTING UP AND ABLE TO HOLD A CONVERSATION. HYPOTENSIVE EPISODES WITH ONE RUN OF VTACH FOR 6 SECONDS PER TELE MONITOR. NO ACUTE CHANGES AT THIS TIME. BED IN LOWEST POSITION WITH CALL LIGHT IN REACH. WILL CONTINUE TO MONITOR AND REPORT TO ONCOMING RN.
[2020-08-22 05:31] LABS: BASOPHILS ABSOLUTE AUTO 0.01 K/mm3 (0.00-0.23); BASOPHILS PERCENT AUTO 0 % (0-2); EOSINOPHILS ABSOLUTE AUTO 0.05 K/mm3 (0.00-0.68); EOSINOPHILS PERCENT AUTO 1 % (0-6); Hemoglobin 7.6 g/dL (11.5-16.0); IMMATURE GRAN ABSOLUTE AUTO 0.02 K/mm3 (0.00-0.10); IMMATURE GRAN PERCENT AUTO 0 % (0-1); LYMPHOCYTES ABSOLUTE AUTO 1.51 K/mm3 (0.84-5.20); LYMPHOCYTES PERCENT AUTO 29 % (21-46); MONOCYTES ABSOLUTE AUTO 0.63 K/mm3 (0.16-1.47); MONOCYTES PERCENT AUTO 12 % (4-13); Mean Corpuscular HGB 35.8 pg (26.0-34.0); Mean Corpuscular HGB Conc 31.7 g/dL (31.5-36.5); Mean Corpuscular Volume 113 fL (80-100); Mean Platelet Volume 10.2 fL (9.1-12.4); NEUTROPHILS ABSOLUTE AUTO 2.91 K/mm3 (1.96-9.15); NEUTROPHILS PERCENT AUTO 57 % (41-73); Platelet Count 77 K/mm3 (150-400); RDW Coefficient Variation 14.1 % (11.7-14.2); RDW Standard Deviation 57.7 fL (35.1-46.3); Red Blood Cell Count 2.12 M/mm3 (3.80-5.20); White Blood Cell Count 5.13 K/mm3 (4.00-11.30)
[2020-08-22 05:56] LABS: Alanine Aminotransfer (ALT/SGP 14 U/L (12-78); Albumin, Blood 1.7 g/dL (3.4-5.0); Albumin/Globulin Ratio 0.5 (0.8-1.8); Alk Phos 60 U/L (50-136); Anion Gap 4 mmol/L (6-16); Aspartate Aminotrans (AST/SGOT 36 U/L (12-37); Bilirubin, Total 6.3 mg/dL (0.1-1.0); Blood Urea Nitrogen 16 mg/dL (8-24); Bun/Creatinine Ratio 17.4 (12.0-20.0); CO2, Blood 32 mmol/L (21-32); Calcium, Blood 7.7 mg/dL (8.5-10.1); Chloride, Blood 109 mmol/L (98-108); Creatinine, Blood 0.92 mg/dL (0.40-1.00); Globulin, Blood 3.4 g/dL (2.2-4.0); Glomerular Filtration Rate >60 (60-); Glucose, Blood 84 mg/dL (70-99); Potassium, Blood 2.9 mmol/L (3.5-5.5); Sodium, Blood 145 mmol/L (136-145); Total Protein, Blood 5.1 g/dL (6.4-8.2)
--- NOTE | 2020-08-22 07:04 | NUR ---
PHYSICIAN CONTACT POTASSIUM LEVEL OF 2.9 THIS MORNING. INFORMATION RECEPTIONIST PROVIDER NOTIFIED, NEW ORDERS FOR 40 MEQ IV X 1 DOSE.
--- NOTE | 2020-08-22 19:03 | NUR ---
PT RESTING IN BED AFTER POULTRY VETERINARIAN AND DINNER. PT REMAINS ORIENTED X4 AND CIWA'S HAVE BEEN AT 0 ALL SHIFT, COMPLETING HER 24H CIWA BELOW 8 THIS HOUR. NO CIWAS NEEDED GOING FORWARD. PT STATES SHE HAD HER LAST DRINK ON THIS YEAR, HOWEVER, SHE WAS A DAILY DRINKER OF HARD LIQ ALL HER LIFE. PT MAKES NO COMPLAINTS AT THIS MOMENT. LINE SL AND WNL. STAFF WILL CONT. TO MONITOR.
[2020-08-23 05:03] LABS: BASOPHILS ABSOLUTE AUTO 0.02 K/mm3 (0.00-0.23); BASOPHILS PERCENT AUTO 0 % (0-2); EOSINOPHILS ABSOLUTE AUTO 0.07 K/mm3 (0.00-0.68); EOSINOPHILS PERCENT AUTO 1 % (0-6); Hematocrit 23.9 % (33.0-51.0); Hemoglobin 7.6 g/dL (11.5-16.0); IMMATURE GRAN ABSOLUTE AUTO 0.03 K/mm3 (0.00-0.10); IMMATURE GRAN PERCENT AUTO 1 % (0-1); LYMPHOCYTES ABSOLUTE AUTO 1.97 K/mm3 (0.84-5.20); LYMPHOCYTES PERCENT AUTO 33 % (21-46); MONOCYTES ABSOLUTE AUTO 0.65 K/mm3 (0.16-1.47); MONOCYTES PERCENT AUTO 11 % (4-13); Mean Corpuscular HGB 35.8 pg (26.0-34.0); Mean Corpuscular HGB Conc 31.8 g/dL (31.5-36.5); Mean Corpuscular Volume 113 fL (80-100); Mean Platelet Volume 10.4 fL (9.1-12.4); NEUTROPHILS ABSOLUTE AUTO 3.33 K/mm3 (1.96-9.15); NEUTROPHILS PERCENT AUTO 55 % (41-73); NRBC ABSOLUTE 0.02 K/mm3 (0.00-0.02); NRBC Auto 0.3 /100 WBC (0.0-0.2); Platelet Count 70 K/mm3 (150-400); RDW Coefficient Variation 13.9 % (11.7-14.2); RDW Standard Deviation 57.4 fL (35.1-46.3); Red Blood Cell Count 2.12 M/mm3 (3.80-5.20); White Blood Cell Count 6.07 K/mm3 (4.00-11.30)
[2020-08-23 05:28] LABS: Alanine Aminotransfer (ALT/SGP 15 U/L (12-78); Albumin, Blood 1.6 g/dL (3.4-5.0); Albumin/Globulin Ratio 0.5 (0.8-1.8); Alk Phos 61 U/L (50-136); Anion Gap 5 mmol/L (6-16); Aspartate Aminotrans (AST/SGOT 41 U/L (12-37); Bilirubin, Total 6.5 mg/dL (0.1-1.0); Blood Urea Nitrogen 14 mg/dL (8-24); Bun/Creatinine Ratio 17.4 (12.0-20.0); CO2, Blood 30 mmol/L (21-32); Calcium, Blood 7.7 mg/dL (8.5-10.1); Chloride, Blood 107 mmol/L (98-108); Globulin, Blood 3.3 g/dL (2.2-4.0); Glomerular Filtration Rate >60 (60-); Glucose, Blood 103 mg/dL (70-99); Potassium, Blood 3.2 mmol/L (3.5-5.5); Sodium, Blood 142 mmol/L (136-145); Total Protein, Blood 4.9 g/dL (6.4-8.2)
--- NOTE | 2020-08-23 06:34 | NUR ---
SHIFT SUMMARY NO ACUTE CHANGES THIS SHIFT. AOX4. FOLLOWS SIMPLE DIRECTIONS. VSS. TELE NSR @84. DENIES PAIN, N/V, DYSPNEA, YIN, DIZZINESS. HAS +3 EDEMA BLE & ABD DISTENDED/FIRM FROM ASCITES. HAD 1 MED/LRG LIQUID BM THIS SHIFT, RECIEVING LACTALOSE. CALL LIGHT IN REACH & PT ABLE TO MAKE NEEDS KNWON.
--- NOTE | 2020-08-23 17:56 | NUR ---
SHIFT SUMMARY PT A/O X4; PLEASANT AND COOPERATIVE WITH CARE. PT GOT UP TO THE BATHROOM THIS AM WITH A STAND BY ASSIST. PT HAS BEEN STAND BY TO IND ALL DAY. PARACENTESIS TO BE SCHEDULED FOR OUTPATIENT IF NEEDED. WORKED WITH O.T./P.T. TODAY. FRANCO, AURELIANO DC'D WNL. FAMILY MEMBER DROVE PT HOME.
== END 2020-08-23 17:54 | disposition home or self-care (01) | DRG 442 ==
LOC: ER 21:04 → MEDS 08-21 01:10
PROVIDERS: Emergency Medicine; Family Medicine; Internal Medicine; ADMIT Internal Medicine
DX: K72.00 Acute and subacute hepatic failure without coma (principal); R17 Unspecified jaundice; K70.31 Alcoholic cirrhosis of liver with ascites; D64.9 Anemia, unspecified; E86.0 Dehydration; E87.6 Hypokalemia; I95.9 Hypotension, unspecified; D69.6 Thrombocytopenia, unspecified; F17.210 Nicotine dependence, cigarettes, uncomplicated
CPT/HCPCS: 36415; 70450; 74018; 76700; 80053; 82140; 83690; 85014; 85018; 85025; 85610; 93005; 93010; 96365; 97165; 97535; 99285-25; A9270; G0480; J2405; J3480; J7030; P9046

== ENCOUNTER → 2020-09-13 | Outpatient (CLI) | payer MEDICARE, OTHER ==
[~2020-09-13] MED LIST changes: +CONSTULOSE10 GM/15 M PO; +PROM25 PO; +SPIR25 PO
[2020-09-13 17:04] LABS: Anion Gap 9 mmol/L (6-16); Blood Urea Nitrogen 9 mg/dL (8-24); Bun/Creatinine Ratio 10.3 (12.0-20.0); CO2, Blood 25 mmol/L (21-32); Calcium, Blood 8.3 mg/dL (8.5-10.1); Chloride, Blood 106 mmol/L (98-108); Creatinine, Blood 0.88 mg/dL (0.40-1.00); Glomerular Filtration Rate >60 (60-); Glucose, Blood 162 mg/dL (70-99); Sodium, Blood 140 mmol/L (136-145)
== END | disposition home or self-care (01) ==
LOC: PLD 14:14 → LAB SHORT 14:14
PROVIDERS: Nurse Practitioner Family
DX: E87.6 Hypokalemia (principal)
CPT/HCPCS: 36415; 80048

== ENCOUNTER 2020-09-20 14:58 | Day surgery (SDC) | payer MEDICARE, OTHER ==
[~2020-09-20 14:58] MED LIST changes: -PROM25 PO
== END 2020-09-20 23:45 ==
LOC: US 14:58
DX: K70.31 Alcoholic cirrhosis of liver with ascites (principal)
CPT/HCPCS: 49083

== ENCOUNTER 2021-01-10 11:47 | Emergency (ER) | payer MEDICARE, OTHER ==
[~2021-01-10] VITALS: Ht 172.7 cm; Wt 55.8 kg
[2021-01-10 13:12] LABS: BASOPHILS ABSOLUTE AUTO 0.03 K/mm3 (0.00-0.23); BASOPHILS PERCENT AUTO 0 % (0-2); EOSINOPHILS ABSOLUTE AUTO 0.01 K/mm3 (0.00-0.68); EOSINOPHILS PERCENT AUTO 0 % (0-6); Hematocrit 29.8 % (33.0-51.0); IMMATURE GRAN ABSOLUTE AUTO 0.03 K/mm3 (0.00-0.10); IMMATURE GRAN PERCENT AUTO 0 % (0-1); LYMPHOCYTES ABSOLUTE AUTO 0.89 K/mm3 (0.84-5.20); LYMPHOCYTES PERCENT AUTO 13 % (21-46); MONOCYTES ABSOLUTE AUTO 0.67 K/mm3 (0.16-1.47); MONOCYTES PERCENT AUTO 10 % (4-13); Mean Corpuscular HGB 33.1 pg (26.0-34.0); Mean Corpuscular HGB Conc 33.6 g/dL (31.5-36.5); Mean Corpuscular Volume 99 fL (80-100); Mean Platelet Volume 9.4 fL (9.1-12.4); NEUTROPHILS ABSOLUTE AUTO 5.28 K/mm3 (1.96-9.15); NEUTROPHILS PERCENT AUTO 77 % (41-73); Platelet Count 123 K/mm3 (150-400); RDW Coefficient Variation 14.5 % (11.7-14.2); RDW Standard Deviation 52.3 fL (35.1-46.3); Red Blood Cell Count 3.02 M/mm3 (3.80-5.20); White Blood Cell Count 6.91 K/mm3 (4.00-11.30)
[2021-01-10 13:32] LABS: Albumin, Blood 2.6 g/dL (3.4-5.0); Albumin/Globulin Ratio 0.5 (0.8-1.8); Bun/Creatinine Ratio 20.2 (12.0-20.0); Calcium, Blood 9.2 mg/dL (8.5-10.1); Creatinine, Blood 1.29 mg/dL (0.40-1.00); Globulin, Blood 4.9 g/dL (2.2-4.0); Potassium, Blood 3.7 mmol/L (3.5-5.5); Total Protein, Blood 7.5 g/dL (6.4-8.2)
[2021-01-10 15:46] LABS: Source, Urine Clean Catch
[2021-01-10 15:50] LABS: Appearance, Urine Clear (Clear); Bilirubin, Urine Neg (Neg); Blood, Urine Neg (Neg); Color, Urine Yellow (P-Yellow); Glucose Qualitative, Urine Neg (Neg); Ketones, Urine 1+ (Neg); Leukocyte Esterase, Urine Neg (Neg); Nitrite, Urine Neg (Neg); Protein, Urine Neg (Neg); Urobilinogen, Urine 1+ (Normal)
[2021-01-10] MEDS ORDERED: PROM25 PO (16:24)
== END 2021-01-10 16:39 | disposition home or self-care (01) ==
LOC: ER 11:47
PROVIDERS: Physician Assistant
DX: K85.90 Acute pancreatitis without necrosis or infection, unspecified (principal); K74.60 Unspecified cirrhosis of liver; E86.0 Dehydration; Z79.899 Other long term (current) drug therapy
CPT/HCPCS: 36415; 76705; 80053; 81003; 83690; 85025; 93005; 93010; 96374; 99284-25; J2405; J7030

== ENCOUNTER 2021-03-24 20:42 | Emergency (ER) | payer MEDICARE, OTHER ==
[~2021-03-24] VITALS: Ht 162.6 cm; Wt 54.4 kg
[~2021-03-24 20:42] MED LIST changes: +PROM25 PO
[2021-03-24 22:30] LABS: BASOPHILS ABSOLUTE AUTO 0.05 K/mm3 (0.00-0.23); BASOPHILS PERCENT AUTO 1 % (0-2); EOSINOPHILS PERCENT AUTO 2 % (0-6); Hematocrit 32.9 % (33.0-51.0); Hemoglobin 10.2 g/dL (11.5-16.0); IMMATURE GRAN ABSOLUTE AUTO 0.01 K/mm3 (0.00-0.10); IMMATURE GRAN PERCENT AUTO 0 % (0-1); LYMPHOCYTES ABSOLUTE AUTO 1.34 K/mm3 (0.84-5.20); LYMPHOCYTES PERCENT AUTO 29 % (21-46); MONOCYTES PERCENT AUTO 11 % (4-13); Mean Corpuscular HGB 27.8 pg (26.0-34.0); Mean Corpuscular Volume 90 fL (80-100); Mean Platelet Volume 9.3 fL (9.1-12.4); NEUTROPHILS ABSOLUTE AUTO 2.58 K/mm3 (1.96-9.15); NEUTROPHILS PERCENT AUTO 56 % (41-73); Platelet Count 107 K/mm3 (150-400); Red Blood Cell Count 3.67 M/mm3 (3.80-5.20); White Blood Cell Count 4.58 K/mm3 (4.00-11.30)
[2021-03-24 22:48] LABS: Albumin, Blood 3.1 g/dL (3.4-5.0); Albumin/Globulin Ratio 0.7 (0.8-1.8); Bun/Creatinine Ratio 14.8 (12.0-20.0); Creatinine, Blood 1.08 mg/dL (0.40-1.00); Globulin, Blood 4.5 g/dL (2.2-4.0); Potassium, Blood 4.6 mmol/L (3.5-5.5); Total Protein, Blood 7.6 g/dL (6.4-8.2)
[2021-03-24 22:53] LABS: Albumin, Blood 3.1 g/dL (3.4-5.0); Albumin/Globulin Ratio 0.7 (0.8-1.8); Bilirubin, Direct 1.1 mg/dL (0.0-0.3); Bilirubin, Indirect 1.9 mg/dL (0.1-0.7); Globulin, Blood 4.5 g/dL (2.2-4.0); Total Protein, Blood 7.6 g/dL (6.4-8.2)
[2021-03-25] MEDS ORDERED: ONDA4ODT MM (04:25)
== END 2021-03-25 05:05 | disposition home or self-care (01) ==
LOC: ER 20:42
PROVIDERS: Physician Assistant
DX: E86.0 Dehydration (principal); R11.2 Nausea with vomiting, unspecified; E72.20 Disorder of urea cycle metabolism, unspecified; K80.80 Other cholelithiasis without obstruction; F17.210 Nicotine dependence, cigarettes, uncomplicated; R41.0 Disorientation, unspecified; Z79.899 Other long term (current) drug therapy
CPT/HCPCS: 36415; 76705; 80053; 80076; 82140; 82248; 83690; 85025; 93005; 93010; 96361; 96374; 99284-25; A9270; G0480; J2405; J7120

== ENCOUNTER 2022-03-28 11:46 | Day surgery (SDC) | payer MEDICARE, OTHER ==
[~2022-03-28] VITALS: Ht 165.1 cm; Wt 61.8 kg
== END 2022-03-28 13:42 | disposition home or self-care (01) ==
LOC: ORSCSDS 11:46
PROVIDERS: Internal Medicine Gastroenterology
PROC: 0DJ08ZZ Inspection of Upper Intestinal Tract, Via Natural or Artificial Opening Endoscopic (ICD-10-PCS; principal; 2022-03-28 13:00)
DX: K70.30 Alcoholic cirrhosis of liver without ascites (principal); K76.6 Portal hypertension; K31.89 Other diseases of stomach and duodenum; K44.9 Diaphragmatic hernia without obstruction or gangrene; K31.819 Angiodysplasia of stomach and duodenum without bleeding; D69.6 Thrombocytopenia, unspecified; Z79.899 Other long term (current) drug therapy; F17.210 Nicotine dependence, cigarettes, uncomplicated
CPT/HCPCS: A9270; J2704; J7120

== ENCOUNTER → 2022-08-10 | Outpatient (CLI) | payer MEDICARE, OTHER ==
[2022-08-10 11:49] LABS: BASOPHILS ABSOLUTE AUTO 0.05 K/mm3 (0.00-0.23); BASOPHILS PERCENT AUTO 1 % (0-2); EOSINOPHILS ABSOLUTE AUTO 0.15 K/mm3 (0.00-0.68); EOSINOPHILS PERCENT AUTO 4 % (0-6); Hematocrit 40.4 % (33.0-51.0); Hemoglobin 13.7 g/dL (11.5-16.0); IMMATURE GRAN ABSOLUTE AUTO 0.01 K/mm3 (0.00-0.10); IMMATURE GRAN PERCENT AUTO 0 % (0-1); LYMPHOCYTES ABSOLUTE AUTO 1.64 K/mm3 (0.84-5.20); LYMPHOCYTES PERCENT AUTO 39 % (21-46); MONOCYTES ABSOLUTE AUTO 0.43 K/mm3 (0.16-1.47); MONOCYTES PERCENT AUTO 10 % (4-13); Mean Corpuscular HGB 33.3 pg (26.0-34.0); Mean Corpuscular HGB Conc 33.9 g/dL (31.5-36.5); Mean Corpuscular Volume 98 fL (80-100); Mean Platelet Volume 10.8 fL (9.1-12.4); NEUTROPHILS ABSOLUTE AUTO 1.97 K/mm3 (1.96-9.15); NEUTROPHILS PERCENT AUTO 46 % (41-73); Platelet Count 74 K/mm3 (150-400); RDW Standard Deviation 54.1 fL (35.1-46.3); Red Blood Cell Count 4.11 M/mm3 (3.80-5.20); White Blood Cell Count 4.25 K/mm3 (4.00-11.30)
[2022-08-10 11:50] LABS: International Normalized Ratio 1.25; Prothrombin Time Results 12.9 Sec (9.7-11.5)
[2022-08-10 12:19] LABS: Albumin, Blood 2.9 g/dL (3.4-5.0); Albumin/Globulin Ratio 0.9 (0.8-1.8); Bilirubin, Total 2.2 mg/dL (0.1-1.0); Bun/Creatinine Ratio 14.5 (12.0-20.0); Calcium, Blood 8.6 mg/dL (8.5-10.1); Creatinine, Blood 0.9 mg/dL (0.40-1.00); Globulin, Blood 3.4 g/dL (2.2-4.0); Potassium, Blood 3.8 mmol/L (3.5-5.5); Thyroid Stimulating Hormone 3.61 uIU/mL (0.360-4.800); Total Protein, Blood 6.3 g/dL (6.4-8.2)
== END ==
LOC: LAB SHORT 10:22 → LAB 10:22
PROVIDERS: Family Medicine
DX: R19.7 Diarrhea, unspecified (principal); K70.31 Alcoholic cirrhosis of liver with ascites; Z83.49 Family history of other endocrine, nutritional and metabolic diseases
CPT/HCPCS: 36415; 80053; 82140; 84443; 85025; 85610

== ENCOUNTER → 2022-12-10 | Outpatient (CLI) | payer MEDICARE, OTHER ==
[2022-12-10 18:42] LABS: Source, Urine Voided
[2022-12-10 19:45] LABS: Bun/Creatinine Ratio 15.6 (12.0-20.0); Calcium, Blood 8.8 mg/dL (8.5-10.1); Creatinine, Blood 0.9 mg/dL (0.40-1.00); Potassium, Blood 3.7 mmol/L (3.5-5.5)
[2022-12-10 20:00] LABS: Calcium Oxalate Crystals Mod /hpf; Red Blood Cells, Urine TNTC /hpf (0-2)
[2022-12-10 20:01] LABS: Amorphous Light (0-Heavy); Bacteria Many /hpf; Squamous Epithelial Cells Few /hpf (Few)
== END | disposition home or self-care (01) ==
LOC: LAB 18:40 → LAB SHORT 18:40
PROVIDERS: Family Medicine
DX: R31.9 Hematuria, unspecified (principal)
CPT/HCPCS: 80048; 81015

== ENCOUNTER → 2022-12-24 | Outpatient (CLI) | payer MEDICARE, OTHER | END | disposition home or self-care (01) | LOC: LAB 13:07 → LAB SHORT 13:07 | DX: R31.9 Hematuria, unspecified (principal) | CPT/HCPCS: 87086 ==